=== PATIENT | female | born 1950 | race African-American/Black ===

== ENCOUNTER 2018-12-02 19:41 | Inpatient (IN) | payer MEDICARE ==
[~2018-12-02] VITALS: Ht 160 cm; Wt 74.8 kg
[2018-12-02] MEDS ORDERED: SODIUM CHLORIDE 0.9% 1,000 ML IV ONE ×2 (22:19→23:10)
[2018-12-02 22:30] LABS: BASOPHILS % 0.2 % (0.0-2.0); EOSINOPHILS % 0.3 % (0.0-5.0); HEMATOCRIT. 41.2 % (36.0-48.0); HEMOGLOBIN. 12.9 g/dL (12.0-16.0); LYMPHOCYTES % 13.4 % (20.0-50.0); MEAN CORPUSCULAR HEMOGLOBIN 28.1 pg (28.0-32.0); MEAN CORPUSCULAR VOLUME 89.4 fL (81.0-99.0); MEAN PLATELET VOLUME 10.8 fl (7.4-10.4); MONOCYTES % 4.7 % (2.0-8.0); NEUTROPHILS % 81.4 % (40.0-76.0); PLATELET 225 x1000/uL (130-400); RED BLOOD CELL COUNT 4.61 mill/uL (4.2-5.4); RED CELL DISTRIBUTION WIDTH 14.4 % (11.6-14.6)
[2018-12-02] MEDS ORDERED: INSULIN REGULAR (HUMULIN R) UD 100 UNITS/ML SYR SUBCUT ONE (22:30)
[2018-12-02] MEDS ORDERED: LEVETIRACETAM 500MG PREMIX 100 ML IV ONE (22:30)
[2018-12-02 22:37] LABS: CHLORIDE 98 mEq/L (98-107)
[2018-12-02 22:41] LABS: INR 0.9; PARTIAL THROMBOPLASTIN TIME 22.7 sec (23.4-31.0); PROTHROMBIN TIME 9.5 sec (9.1-11.1)
[2018-12-02 22:42] LABS: CLARITY URINE CLEAR (CLEAR); COLOR URINE YELLOW (YELLOW); ETHANOL BLOOD < 10 mg/dL; KETONES URINE NEGATIVE (NEGATIVE); LEUKOCYTE ESTERASE URINE NEGATIVE (NEGATIVE); NITRITE URINE NEGATIVE (NEGATIVE); OCCULT BLOOD URINE NEGATIVE (NEGATIVE); PROTEIN URINE NEGATIVE (NEGATIVE); SPECIFIC GRAVITY URINE 1.024 (1.005-1.030); UROBILINOGEN URINE 0.2 E.U./dL (0.2-1.0)
[2018-12-02 22:47] LABS: BETA HYDROXYBUTYRATE 0.2 mMol/L (0.0-0.3)
[2018-12-02 22:54] LABS: *AMPHETAMINES SCREEN URINE NEGATIVE (NEGATIVE); *BARBITURATES SCREEN URINE NEGATIVE (NEGATIVE)
[2018-12-02 22:55] LABS: *BENZODIAZEPINES SCREEN URINE NEGATIVE (NEGATIVE); *COCAINE SCREEN URINE NEGATIVE (NEGATIVE); CANNABINOID URINE SCREEN NEGATIVE (NEGATIVE); METHADONE URINE SCREEN NEGATIVE (NEGATIVE); OPIATES URINE SCREEN NEGATIVE (NEGATIVE); PHENCYCLIDINE URINE SCREEN NEGATIVE (NEGATIVE)
[2018-12-02 23:08] LABS: BG BASE EXCESS -0.7 mmol/L (-2.0-2.0); BG CARBOXYHEMOGLOBIN 0.5 % (0.5-1.5); BG DEOXYHEMOGLOBIN 5.5 % (0.0-5.0); BG FRACTION INSPIRED OXYGEN 21; BG HCO3 ACT 24.9 mmol/L (22.0-26.0); BG METHEMOGLOBIN 0.2 % (0.0-1.5); BG OXYGEN SATURATION 94.5 % (92.0-98.5); BG OXYHEMOGLOBIN 93.8 % (94.0-97.0); BG PCO2 44.7 mmHg (35.0-45.0); BG PH 7.364 (7.350-7.450); BG PO2 72.8 mmHg (75.0-100.0); BG SAMPLE SITE RIGHT RADIAL; BG TOTAL HEMOGLOBIN 13.5 g/dL (12.0-18.0); BG VENT MODE ROOM AIR
[2018-12-02] MEDS ORDERED: LACTULOSE 20G/30ML UDC PO ONE (23:15)
[2018-12-02] MEDS ORDERED: LORAZEPAM 2MG/ML CPJ IV ONE (23:15)
[2018-12-02] MEDS ORDERED: INSULIN REGULAR (HUMULIN R) 300UNITS/3ML SUBCUT NR (23:15)
[2018-12-03] MEDS: SODIUM CHLORIDE 0.45% 1,000 ML IV SCH ×3 (05:57→23:05)
[2018-12-03] MEDS ORDERED: DEXTROSE 50% WATER 50ML SYRINGE IV PRN (06:00)
[2018-12-03] MEDS ORDERED: IPRATROPIUM/ALBUTEROL 0.5-3(2.5)MG/3ML NEB INH PRN (06:00)
[2018-12-03] MEDS ORDERED: LORAZEPAM 2MG/ML CPJ IV PRN (06:00)
[2018-12-03] MEDS ORDERED: ENOXAPARIN 40MG/0.4ML SYR SUBCUT SCH (06:00)
[2018-12-03] MEDS ORDERED: DIPHENHYDRAMINE 50MG/ML VIAL IV PRN (06:00)
[2018-12-03] MEDS: SODIUM CHLORIDE 0.9% INJ 3ML FLUSH IVF SCH ×3 (06:00→22:00)
[2018-12-03] MEDS: BLOOD SUGAR DIAGNOSTIC STRIP TEST SCH ×5 (06:00→21:00)
[2018-12-03] MEDS ORDERED: MAGNESIUM/ALUMINUM HYDROXIDE/SIMETHICONE 30ML UDC PO PRN (06:00)
[2018-12-03] MEDS ORDERED: ONDANSETRON HCL 4MG/2ML INJ IV PRN (06:00)
[2018-12-03] MEDS ORDERED: ACETAMINOPHEN 325MG TABLET PO PRN (06:00)
[2018-12-03] MEDS: INSULIN LISPRO 100 UNITS/ML SUBCUT SCH ×4 (08:20→20:23)
[2018-12-03] MEDS: HYDRALAZINE 20MG/ML VIAL IV PRN (08:58)
[2018-12-03] MEDS: ASPIRIN 81MG EC TABLET PO SCH (09:00)
[2018-12-03 09:20] LABS: CREATINE KINASE MB FRACTION 2.1 ng/mL (0.5-3.6)
[2018-12-03] MEDS ORDERED: HYDROMORPHONE HCL/PF 2MG/ML CPJ IV PRN (20:00)
[2018-12-03 22:00] VITALS: BP 148/92
[2018-12-03 22:31] VITALS: BP 148/90
[2018-12-04] VITALS (10 sets, daily range): BP systolic 101–177; BP diastolic 49–109
[2018-12-04] MEDS: SODIUM CHLORIDE 0.9% INJ 3ML FLUSH IVF SCH ×3 (06:00→20:32)
[2018-12-04 06:21] LABS: BASOPHILS % 0.6 % (0.0-2.0); EOSINOPHILS % 0.9 % (0.0-5.0); HEMATOCRIT. 33.6 % (36.0-48.0); HEMOGLOBIN. 11.3 g/dL (12.0-16.0); LYMPHOCYTES % 27.6 % (20.0-50.0); MEAN CORPUSCULAR HEMOGLOBIN 29.2 pg (28.0-32.0); MEAN CORPUSCULAR VOLUME 86.5 fL (81.0-99.0); MEAN PLATELET VOLUME 10.6 fl (7.4-10.4); MONOCYTES % 8.1 % (2.0-8.0); NEUTROPHILS % 62.8 % (40.0-76.0); PLATELET 182 x1000/uL (130-400); RED BLOOD CELL COUNT 3.88 mill/uL (4.2-5.4); RED CELL DISTRIBUTION WIDTH 14.3 % (11.6-14.6)
[2018-12-04 07:04] LABS: CHLORIDE 106 mEq/L (98-107)
[2018-12-04 07:21] LABS: T4 FREE 0.91 ng/dL (0.76-1.46)
[2018-12-04] MEDS: BLOOD SUGAR DIAGNOSTIC STRIP TEST SCH ×4 (07:30→20:29)
[2018-12-04] MEDS: SODIUM CHLORIDE 0.45% 1,000 ML IV SCH ×2 (08:39→20:29)
[2018-12-04] MEDS: INSULIN LISPRO 100 UNITS/ML SUBCUT SCH ×4 (09:29→20:38)
[2018-12-04] MEDS: ASPIRIN 81MG EC TABLET PO SCH (09:33)
[2018-12-04] MEDS: DOCUSATE SODIUM 100MG CAPSULE PO PRN (09:33)
[2018-12-04] MEDS: ENOXAPARIN 40MG/0.4ML SYR SUBCUT SCH (09:34)
[2018-12-04] MEDS: HYDROCODONE/ACETAMINOPHEN 10/325MG TABLET PO PRN (20:39)
[2018-12-04] MEDS: CLONIDINE 0.1MG TABLET PO PRN (20:39)
[2018-12-05] VITALS (12 sets, daily range): BP systolic 94–182; BP diastolic 68–114
[2018-12-05] MEDS: SODIUM CHLORIDE 0.9% INJ 3ML FLUSH IVF SCH ×3 (05:31→20:49)
[2018-12-05] MEDS: BLOOD SUGAR DIAGNOSTIC STRIP TEST SCH ×4 (07:33→21:54)
[2018-12-05] MEDS: ASPIRIN 81MG EC TABLET PO SCH (08:29)
[2018-12-05] MEDS: INSULIN LISPRO 100 UNITS/ML SUBCUT SCH ×4 (08:31→21:59)
[2018-12-05] MEDS: HYDROCODONE/ACETAMINOPHEN 10/325MG TABLET PO PRN (08:31)
[2018-12-05] MEDS: SODIUM CHLORIDE 0.45% 1,000 ML IV SCH ×2 (08:32→17:59)
[2018-12-05] MEDS: ENOXAPARIN 40MG/0.4ML SYR SUBCUT SCH (08:32)
[2018-12-05] MEDS: HYDRALAZINE 20MG/ML VIAL IV PRN (12:44)
[2018-12-05] MEDS: DOCUSATE SODIUM 100MG CAPSULE PO PRN (14:24)
[2018-12-05 19:08] LABS: CHLORIDE 102 mEq/L (98-107)
[2018-12-05] MEDS ORDERED: POTASSIUM CHLORIDE 20MEQ TABLET SR PO NR (20:00)
[2018-12-06] VITALS (13 sets, daily range): BP systolic 98–167; BP diastolic 58–97
[2018-12-06] MEDS: SODIUM CHLORIDE 0.45% 1,000 ML IV SCH ×3 (03:57→23:38)
[2018-12-06] MEDS: SODIUM CHLORIDE 0.9% INJ 3ML FLUSH IVF SCH ×3 (05:46→20:56)
[2018-12-06] MEDS: BLOOD SUGAR DIAGNOSTIC STRIP TEST SCH ×4 (07:42→20:55)
[2018-12-06] MEDS: ASPIRIN 81MG EC TABLET PO SCH (08:02)
[2018-12-06] MEDS: ENOXAPARIN 40MG/0.4ML SYR SUBCUT SCH (08:02)
[2018-12-06] MEDS: CLONIDINE 0.1MG TABLET PO PRN (08:03)
[2018-12-06] MEDS: INSULIN LISPRO 100 UNITS/ML SUBCUT SCH ×4 (08:03→20:55)
[2018-12-06] MEDS: HYDROCODONE/ACETAMINOPHEN 10/325MG TABLET PO PRN (13:37)
[2018-12-07] VITALS (11 sets, daily range): BP systolic 132–180; BP diastolic 55–95
[2018-12-07] MEDS: SODIUM CHLORIDE 0.9% INJ 3ML FLUSH IVF SCH ×2 (05:42→21:29)
[2018-12-07 06:52] LABS: BASOPHILS % 0.7 % (0.0-2.0); EOSINOPHILS % 2.6 % (0.0-5.0); HEMATOCRIT. 37.1 % (36.0-48.0); HEMOGLOBIN. 12.3 g/dL (12.0-16.0); LYMPHOCYTES % 38.3 % (20.0-50.0); MEAN CORPUSCULAR HEMOGLOBIN 28.5 pg (28.0-32.0); MEAN CORPUSCULAR VOLUME 85.8 fL (81.0-99.0); MEAN PLATELET VOLUME 10.1 fl (7.4-10.4); MONOCYTES % 9.6 % (2.0-8.0); NEUTROPHILS % 48.8 % (40.0-76.0); PLATELET 203 x1000/uL (130-400); RED BLOOD CELL COUNT 4.32 mill/uL (4.2-5.4)
[2018-12-07 07:04] LABS: CHLORIDE 106 mEq/L (98-107)
[2018-12-07] MEDS: INSULIN LISPRO 100 UNITS/ML SUBCUT SCH ×4 (07:59→21:29)
[2018-12-07] MEDS: BLOOD SUGAR DIAGNOSTIC STRIP TEST SCH ×4 (08:00→21:28)
[2018-12-07] MEDS: ENOXAPARIN 40MG/0.4ML SYR SUBCUT SCH (08:58)
[2018-12-07] MEDS: ASPIRIN 81MG EC TABLET PO SCH (08:58)
[2018-12-07] MEDS: SODIUM CHLORIDE 0.45% 1,000 ML IV SCH (19:44)
[2018-12-08] VITALS (12 sets, daily range): BP systolic 115–169; BP diastolic 55–113
[2018-12-08] MEDS: SODIUM CHLORIDE 0.45% 1,000 ML IV SCH ×2 (05:57→15:57)
[2018-12-08] MEDS: SODIUM CHLORIDE 0.9% INJ 3ML FLUSH IVF SCH ×2 (06:00→14:00)
[2018-12-08] MEDS: BLOOD SUGAR DIAGNOSTIC STRIP TEST SCH ×4 (08:01→21:48)
[2018-12-08] MEDS: ASPIRIN 81MG EC TABLET PO SCH (08:16)
[2018-12-08] MEDS: ENOXAPARIN 40MG/0.4ML SYR SUBCUT SCH (08:17)
[2018-12-08] MEDS: INSULIN LISPRO 100 UNITS/ML SUBCUT SCH ×4 (08:18→21:54)
[2018-12-08] MEDS: CLONIDINE 0.1MG TABLET PO PRN (20:13)
[2018-12-09] VITALS (13 sets, daily range): BP systolic 108–165; BP diastolic 47–102
[2018-12-09] MEDS: BLOOD SUGAR DIAGNOSTIC STRIP TEST SCH ×4 (07:30→21:00)
[2018-12-09] MEDS: ASPIRIN 81MG EC TABLET PO SCH (08:35)
[2018-12-09] MEDS: ENOXAPARIN 40MG/0.4ML SYR SUBCUT SCH (08:35)
[2018-12-09] MEDS: INSULIN LISPRO 100 UNITS/ML SUBCUT SCH ×4 (08:36→22:29)
[2018-12-09] MEDS: GUAIFENESIN 200MG/10ML SUGAR FREE UDC PO PRN ×2 (20:18→23:20)
[2018-12-09] MEDS: SODIUM CHLORIDE 0.9% INJ 3ML FLUSH IVF SCH (21:39)
[2018-12-10] VITALS (8 sets, daily range): BP systolic 127–160; BP diastolic 53–95
[2018-12-10] MEDS: GUAIFENESIN 200MG/10ML SUGAR FREE UDC PO PRN ×3 (04:14→18:04)
[2018-12-10] MEDS: SODIUM CHLORIDE 0.9% INJ 3ML FLUSH IVF SCH (06:00)
[2018-12-10 07:11] LABS: BASOPHILS % 0.8 % (0.0-2.0); EOSINOPHILS % 2.2 % (0.0-5.0); HEMATOCRIT. 33.6 % (36.0-48.0); HEMOGLOBIN. 11.1 g/dL (12.0-16.0); LYMPHOCYTES % 29.1 % (20.0-50.0); MEAN CORPUSCULAR HEMOGLOBIN 28.3 pg (28.0-32.0); MEAN CORPUSCULAR VOLUME 85.9 fL (81.0-99.0); MEAN PLATELET VOLUME 9.7 fl (7.4-10.4); MONOCYTES % 14.9 % (2.0-8.0); PLATELET 211 x1000/uL (130-400); RED BLOOD CELL COUNT 3.91 mill/uL (4.2-5.4); RED CELL DISTRIBUTION WIDTH 14.5 % (11.6-14.6)
[2018-12-10] MEDS: BLOOD SUGAR DIAGNOSTIC STRIP TEST SCH ×4 (08:00→20:18)
[2018-12-10 08:27] LABS: CHLORIDE 104 mEq/L (98-107)
[2018-12-10] MEDS: ASPIRIN 81MG EC TABLET PO SCH (08:47)
[2018-12-10] MEDS: INSULIN LISPRO 100 UNITS/ML SUBCUT SCH ×4 (08:47→20:25)
[2018-12-10] MEDS: ENOXAPARIN 40MG/0.4ML SYR SUBCUT SCH (08:48)
[2018-12-10] MEDS: DOCUSATE SODIUM 100MG CAPSULE PO PRN (18:04)
[2018-12-11] VITALS (7 sets, daily range): BP systolic 132–171; BP diastolic 68–91
[2018-12-11] MEDS: CLONIDINE 0.1MG TABLET PO PRN (00:23)
[2018-12-11] MEDS: GUAIFENESIN 200MG/10ML SUGAR FREE UDC PO PRN ×5 (03:32→20:53)
[2018-12-11] MEDS: ENOXAPARIN 40MG/0.4ML SYR SUBCUT SCH (08:00)
[2018-12-11] MEDS: BLOOD SUGAR DIAGNOSTIC STRIP TEST SCH ×4 (08:00→20:49)
[2018-12-11] MEDS: ASPIRIN 81MG EC TABLET PO SCH (08:00)
[2018-12-11] MEDS: INSULIN LISPRO 100 UNITS/ML SUBCUT SCH ×4 (08:54→20:49)
[2018-12-11] MEDS ORDERED: AMLODIPINE (11:05)
[2018-12-11] MEDS ORDERED: ASPIRIN (11:07)
[2018-12-11] MEDS ORDERED: METFORMIN (11:07)
[2018-12-11] MEDS ORDERED: GLIPIZIDE (11:07)
[2018-12-12] VITALS: BP 133/65
[2018-12-12 04:00] VITALS: BP 131/73
[2018-12-12] MEDS: GUAIFENESIN 200MG/10ML SUGAR FREE UDC PO PRN (05:36)
[2018-12-12] MEDS: BLOOD SUGAR DIAGNOSTIC STRIP TEST SCH ×2 (07:30→12:20)
[2018-12-12 08:00] VITALS: BP 137/90
[2018-12-12] MEDS: ENOXAPARIN 40MG/0.4ML SYR SUBCUT SCH (08:48)
[2018-12-12] MEDS: ASPIRIN 81MG EC TABLET PO SCH (08:48)
[2018-12-12] MEDS: INSULIN LISPRO 100 UNITS/ML SUBCUT SCH ×2 (08:49→13:29)
[2018-12-12 12:00] VITALS: BP 136/71
[2018-12-12 15:56] VITALS: BP 136/71
[2018-12-12 16:00] VITALS: BP 167/87
== END 2018-12-12 17:00 | disposition home health service (06) | DRG 53 ==
LOC: ER 19:41 → ENRESERV 12-03 21:01 → 5EST 12-03 22:10 → 6EST 12-12 10:20
PROVIDERS: ADMIT Internal Medicine; ATTEND Internal Medicine
DX: G40.89 Other seizures (principal); E46 Unspecified protein-calorie malnutrition; I11.0 Hypertensive heart disease with heart failure; I50.9 Heart failure, unspecified; E11.65 Type 2 diabetes mellitus with hyperglycemia; E86.0 Dehydration; S82.831A Other fracture of upper and lower end of right fibula, initial encounter for closed fracture; I25.10 Atherosclerotic heart disease of native coronary artery without angina pectoris; W18.39XA Other fall on same level, initial encounter; Y93.89 Activity, other specified; Y99.8 Other external cause status; Z79.84 Long term (current) use of oral hypoglycemic drugs; Y92.89 Other specified places as the place of occurrence of the external cause; Z68.29 Body mass index [BMI] 29.0-29.9, adult; Z79.899 Other long term (current) drug therapy; Z79.82 Long term (current) use of aspirin
CPT/HCPCS: 36415; 36600; 71045; 73590; 80048; 80305; 80320; 82010; 82140; 82375; 82550; 82553; 82805; 82962; 83880; 84439; 84443; 84484; 93005; 96365; 96375; 97116; 97162; 97530; 97760; 99291; J0360; J1650; J1815; J1953; J2060; J7030; G0480

== ENCOUNTER 2019-01-04 15:19 | Emergency (ER) | payer MEDICARE ==
[~2019-01-04] VITALS: Ht 160 cm; Wt 73.7 kg
[~2019-01-04 15:19] MED LIST: AMLODIPINE; ASPIRIN; GLIPIZIDE; METFORMIN
[2019-01-04 17:19] VITALS: BP 171/82
== END 2019-01-04 17:21 | disposition home or self-care (01) ==
LOC: ER 15:19
DX: E11.9 Type 2 diabetes mellitus without complications (principal); E78.00 Pure hypercholesterolemia, unspecified
CPT/HCPCS: 82962; 99283